=== PATIENT | male | born 1950 | race Caucasian/White ===

== ENCOUNTER 2016-09-12 15:06 | Inpatient (IN) | payer OTHER ==
[~2016-09-12] VITALS: Ht 177.8 cm; Wt 107.9 kg
--- NOTE | 2016-09-17 15:34 | MH ---
cc: Cielo GRANADOS M.D. DATE OF ADMISSION: 09/23/2016 ADMISSION DIAGNOSIS Osteoarthritic degeneration right knee, now being admitted for right total knee arthroplasty. HISTORY OF PRESENT ILLNESS This pleasant 66-year-old male is being admitted today for a right total knee arthroplasty due to severe painful osteoarthritic degeneration right knee. PAST MEDICAL HISTORY Other than arthritis he has a history of kidney stones, hernia repair and back pain. MEDICATIONS He takes no medications. PAST SURGICAL HISTORY 1. Four knee surgeries on the right knee including ACL reconstruction. 2. Left hernia repair. SOCIAL HISTORY He does not smoke or drink. REVIEW OF SYSTEMS Noncontributory. FAMILY HISTORY Noncontributory. ALLERGIES He has no known allergies. PHYSICAL EXAMINATION GENERAL: A 66-year-old male well-developed, well-nourished, oriented x3, complaining of pain in his right knee. VITAL SIGNS: Blood pressure 128/72, pulse 72 and regular, respirations 16, temperature 97.9, pulse oximetry 98% on room air. HEENT: Eyes PERRLA, EOMI. Ears, nose and mouth clear. NECK: Supple. LUNGS: Clear. HEART: Regular rate. ABDOMEN: Soft. Positive bowel sounds. Nontender. EXTREMITIES: The right knee is tender with crepitance on range of motion. He is neurovascularly intact to his toes. IMPRESSION The impression at this time is severe painful osteoarthritic degeneration, right knee. PLAN Admission for right total knee arthroplasty today. The patient understands the procedure well, was given a prescription for postoperative pain and anticoagulation control in the office. He understands he is to use Hibiclens scrub and Bactroban preoperatively and plans on going home with home health care after surgery. MD ALIS Atkinson/JACEK /3:20 PM /3:23 PM
[2016-09-23] MEDS ORDERED: ceFAZolin 2 GM PREMIX 50 ML IV SCH (06:15)
[2016-09-23] MEDS ORDERED: VANCOMYCIN 1000 MG/NS 250 ML (for <70 kg) IV SCH ×2 (06:15)
[2016-09-23] MEDS ORDERED: CHLORHEXIDINE GLUCONATE 4% SOLN 120 ML BTL TOPICAL SCH (06:15)
[2016-09-23] MEDS ORDERED: EXPAREL PERI-ARTICULAR INJECTION (TOTAL VOL. 120 ML) P-ARTICULR SCH ×2 (06:15)
[2016-09-23] MEDS ORDERED: TRANEXAMIC ACID INJ 965 MG in SODIUM CHLORIDE 0.9% INJ 100 ML IV SCH ×4 (06:15)
[2016-09-23 06:22] VITALS: BP 158/82; PULSE 55; RESP 16; TEMP 98; O2SAT 97
[2016-09-23] MEDS ORDERED: INSULIN HUMAN REGULAR 1,000 UNITS/10 ML VIAL SQ PRN (06:30)
[2016-09-23] MEDS ORDERED: METOPROLOL TARTRATE 25 MG TAB PO PRN (06:30)
[2016-09-23] MEDS ORDERED: SODIUM CHLORID 0.9% 500 ML IV PRN (06:30)
[2016-09-23] MEDS ORDERED: LACTATED RINGER'S 1000 ML IV PRN (06:30)
[2016-09-23] MEDS ORDERED: CHLORHEXIDINE GLUCONATE 2 % 1 PACK (2 CLOTHS) TOPICAL PRN (06:30)
[2016-09-23] MEDS ORDERED: POVIDONE IODINE 5% (ANTISEPSIS KIT) 4 APPLICATIONS EACH NARE PRN (06:30)
[2016-09-23] MEDS ORDERED: BUPIVACAINE HCL PF 0.5% 30 ML VIAL NERV BLOCK ONE (07:25)
[2016-09-23] MEDS ORDERED: FAMOTIDINE 20 MG/2 ML VIAL ONE (08:00)
[2016-09-23] MEDS ORDERED: ceFAZolin INJ 1,000 MG VIAL XX ONE (09:12)
[2016-09-23] MEDS ORDERED: ACETAMINOPHEN 1000 MG/100 ML VIAL IV ONE (09:24)
[2016-09-23] MEDS: LACTATED RINGER'S 1000 ML INJ 1,000 ML IV SCH (11:39)
--- NOTE | 2016-09-23 11:42 | HHI.FF ---
Face to Face Verification Diagnosis: (1) Status post total right knee replacement Physical Therapy Gait training Knee: Total knee, Protocol: Right, Gait training, Full weight bearing Canvas Knee Splint: When in bed & 2 pillows btw thighs Nursing RN: 3 days/week x 2 weeks Nursing: Jonathan teaching, Dressing changes Dressing Changes: Daily dressing change, 4x4s, Gauze, Paper tape I have seen patient Masood Smyth on 09/23/16. My clinical findings support the need for the requested home health care services because: Limited ability to care for self High risk of falls I certify that my clinical findings support that this patient is homebound because: Unsteady gait/balance Cielo Joseph MD Sep 23, 2016 11:42
[2016-09-23] MEDS ORDERED: ACETAMINOPHEN 325 MG TAB PO PRN (11:45)
[2016-09-23] MEDS ORDERED: diphenhydrAMINE HCL 50 MG/ML VIAL IV PRN (11:45)
[2016-09-23] MEDS ORDERED: TEMAZEPAM 15 MG CAP PO PRN (11:45)
[2016-09-23] MEDS ORDERED: WALKER WHEELS/F1 MIS (11:45)
[2016-09-23] MEDS ORDERED: NALOXONE HCL 0.4 MG/ML AMP IV PRN ×2 (11:45)
[2016-09-23] MEDS ORDERED: Post-op Orders (for Pharmacy) MISC XX ONE (11:45)
[2016-09-23] MEDS ORDERED: CPMMACHINE (11:45)
[2016-09-23] MEDS ORDERED: SODIUM CHLORIDE 0.9% FLUSH 5 ML FLUSH IVF PRN (11:45)
[2016-09-23] MEDS ORDERED: ADJUSTABLE COMM1 MIS (11:45)
[2016-09-23] MEDS ORDERED: ONDANSETRON HCL 4 MG/2 ML VIAL IVP PRN (11:45)
[2016-09-23] MEDS ORDERED: TRANEXAMIC ACID INJ 0 MG in SODIUM CHLORIDE 0.9% INJ 100 ML IV SCH (11:45)
[2016-09-23] MEDS ORDERED: ACETAMINOPHEN/HYDROcodone 325 MG/7.5 MG TAB PO PRN (11:45)
[2016-09-23] MEDS ORDERED: fentaNYL CITRATE 250 MCG/5 ML AMP ONE (11:59)
[2016-09-23] MEDS ORDERED: MIDAZOLAM HCL 2 MG/2 ML VIAL ONE (11:59)
[2016-09-23] MEDS ORDERED: ONDANSETRON HCL 4 MG/2 ML VIAL IV PUSH ONE (12:00)
[2016-09-23] MEDS ORDERED: PROPOFOL 200 MG/20 ML AMP IV ONE (12:00)
[2016-09-23] MEDS ORDERED: NEOSTIGMINE 3 MG/3 ML SYR IV ONE (12:00)
[2016-09-23] MEDS ORDERED: LACTATED RINGER'S 1000 ML INJ 1,000 ML IV ONE (12:00)
[2016-09-23] MEDS ORDERED: DO NOT ADM ANY ANTICOAGULANT DRUGS PRN (12:30)
[2016-09-23] MEDS: MORPHINE SULFATE 30 MG/30 ML PCA IV SCH (13:08)
[2016-09-23 13:45] VITALS: BP 158/75; PULSE 60; RESP 19; TEMP 97.2; O2SAT 98
--- NOTE | 2016-09-23 14:32 | RADRPT ---
EXAM DATE/TIME: 09/23/2016 12:27 [facility] COMPARISON: No previous studies available for comparison. INDICATIONS : Post op right knee replacement. MEDICAL HISTORY : None. SURGICAL HISTORY : None. ENCOUNTER: Initial ACUITY: 1 day PAIN SCORE: 5/10 LOCATION: Right knee FINDINGS: The patient is status post right total knee replacement. There is no acute fracture or dislocation. CONCLUSION: Status post right total knee replacement with prosthesis in good position. Ward Bustamante MD on September 23, 2016 at 14:29 Board Certified Radiologist. This report was verified electronically.
[2016-09-23] MEDS: PCA - TOTAL MG MORPHINE DELIVERED PER SHIFT SCH ×2 (14:33→22:00)
[2016-09-23 16:00] VITALS: BP 146/80; PULSE 70; RESP 19; TEMP 98; O2SAT 98
[2016-09-23 20:50] VITALS: BP 138/79; PULSE 59; RESP 18; TEMP 96.6; O2SAT 97
[2016-09-23] MEDS: SODIUM CHLORIDE 0.9% FLUSH 5 ML FLUSH IVF SCH (21:00)
--- NOTE | 2016-09-23 22:35 | MP ---
cc: Cielo GRANADOS DATE OF SURGERY 09/23/2016 PREOPERATIVE DIAGNOSIS Osteoarthritic degeneration, right knee. POSTOPERATIVE DIAGNOSIS Osteoarthritic degeneration, right knee. PROCEDURE Right total knee arthroplasty using consensus components size six femur, four tibia, 12-mm insert with a size 2 x 7.5 patella with two batches of DePuy cement SURGEON Dr. Rohith Granados HAND BOX FOLDER GAMALIEL Higuera ANESTHESIA General intubation PROCEDURE IN DETAIL After successful induction of anesthesia, the patient is placed on the operating room table in the supine position. The knee is prepped and draped in the usual manner. A tourniquet is inflated at the upper thigh and set to 300 mmHg pressure after exsanguination of the lower extremity. A longitudinal incision is made extending from 3 inches proximal to the superior pole of the patella, across the patella in longitudinal fashion, and down past the insertion of the tibial tubercle into the proximal tibia. The incision is carried down through subcutaneous tissue along the medial aspect of the patella and retinaculum, down through the capsule to expose the knee joint. The patella and patellar tendon are freed up enough to allow the patella to be inverted and retracted off the lateral side of the knee joint. The knee joint is left exposed. Small osteophytes are removed. All soft tissue is removed to allow proper position of the femoral and tibial cutting jig guide. The first femoral jig is then inserted along the distal end of the femur after first measuring to decide whether this is a small, medium, or large component. The notch is then drilled and the tibial cutting guide inserted into the femoral cutting guide, along with the ankle brace to allow for proper measurement of the tibial cutting surface that needed to be resected. Pins are inserted into the tibial cutting jig and femoral cutting jig to hold them in place. An oscillating saw is then used to resect the surface of the tibia. The surface of the tibia is then completely removed using sharp and blunt dissection. The anterior and posterior cuts of the femur are then made as well using an oscillating saw through the cutting guide. All guides are then removed and the varus/valgus angulation cutting guide applied to the femur for proper measurement of the proper amount of valgus. The anterior cutting guide for the femur is then inserted at the anterior femoral cuts made. Next, the first block trial is inserted into the femur to allow for proper condyle drill holes to be made which are then made followed by removal of the bone between the condyles using an oscillating saw as well as the bone removed at the most posterior surface of the condyle. After this, this guide is removed and the chamfer cuts made using the chamfer cutting guide from both anterior and posterior. Next, the femoral trial is then inserted, the tibial surface reflected anterior to expose the tibial surface and a tibial stem guide is inserted after first measuring for a standard, standard plus, large, or large plus surface to be used. After the stem is impacted the trial tibial surface is applied followed by the trial meniscal components. After full range of motion is found with the appropriate length meniscal components varying the patella is prepared by resecting the posterior aspect of the patella using an oscillating saw, inserting a trial. The trial is then removed and the cruciate cutting guide applied using the bur to cut the cruciate cuts. After cruciate cuts are made all trials are removed. The wound is irrigated copiously with antibiotic solution and Water Pik and the actual components inserted into place using the aforementioned components. After the cement has hardened and the components are found to have full range of motion with no instability, the tourniquet is deflated, total tourniquet time being 95 minutes at 300 mmHg pressure. It should be noted that upon preparation of the tibia, the two screws from previous ACL reconstruction surgery needed to be removed which necessitated an extra 45 minutes of surgical time. The wound was irrigated copiously with antibiotic solution and 120 mL of Exparel used around the knee as extra pain control. The deep fascia was approximated with running #2 quill, subcutaneous tissue approximated using interrupted running 2-0 and 4-0 Monocryl sutures. Steri-Strips, sterile dressing and knee immobilizer. No drain utilized. Estimated blood loss 100 mL. Sponge and count correct. The patient tolerated the procedure well, left the operating room in satisfactory condition. It should be noted Fernando ALSTON was present during the entire procedure to include patient positioning as well as the procedure. The medical necessity of a nurse practitioner data analysis assistant was indicated in this case due to the surgical complexity of the case itself. During the surgical case, the assembler surgical garment was working the back table while my surgical appliances salesperson GAMALIEL was directly assisting me. J. MD ALIS Donovan/ /12:08 PM /10:30 PM
[2016-09-24] VITALS (7 sets, daily range): BP systolic 138–158; BP diastolic 68–74; PULSE 55–104; RESP 17–18; TEMP 96.6–99.9; O2SAT 93–96
[2016-09-24] MEDS: LACTATED RINGER'S 1000 ML INJ 1,000 ML IV SCH ×2 (02:13→12:39)
[2016-09-24] MEDS: MORPHINE SULFATE 30 MG/30 ML PCA IV SCH (02:18)
[2016-09-24] MEDS: PCA - TOTAL MG MORPHINE DELIVERED PER SHIFT SCH ×3 (05:54→22:00)
[2016-09-24 07:22] LABS: HEMATOCRIT 40.7 % (39.0-51.0); REVIEW FLAG FINAL
--- NOTE | 2016-09-24 08:05 | PD.ORT.PN ---
Subjective Post Op Day #: POD 1 Pain Scale: 0/10 Subjective Remarks Ax3, NAD Feeling well Discusses interest in actively returning to work and physical therapy yo begin. Range of Motion currently in bed CMP not in use at this time Objective Vitals Vital Signs Date Time Temp Pulse Resp B/P Pulse Ox O2 Delivery O2 Flow Rate FiO2 09/24/16 07:45 96.7 104 18 138/69 95 09/24/16 05:54 18 09/24/16 04:50 96.6 69 17 154/74 95 09/24/16 02:23 18 09/24/16 02:18 18 09/24/16 00:30 97.0 55 17 142/68 96 09/23/16 22:00 18 09/23/16 20:50 96.6 59 18 138/79 97 09/23/16 16:00 98.0 70 19 146/80 98 09/23/16 14:33 18 09/23/16 13:45 97.2 60 19 158/75 98 09/23/16 13:08 13 09/23/16 12:45 64 16 137/68 96 Nasal Cannula 2 09/23/16 12:30 66 16 160/74 95 Nasal Cannula 2 09/23/16 12:15 76 16 163/86 97 Nasal Cannula 2 09/23/16 12:00 63 16 165/80 95 Nasal Cannula 2 09/23/16 11:46 97.6 73 16 165/81 97 Nasal Cannula 2 I/O 09/23/16 09/23/16 09/23/16 09/24/16 09/24/16 09/24/16 07:00 15:00 23:00 07:00 15:00 23:00 Intake Total 1200 ml 480 ml 480 ml Output Total 100 ml 400 ml 450 ml Balance 1100 ml 80 ml 30 ml Intake Oral 0 ml 480 ml 480 ml IV Total 100 ml Other 1100 ml Output Urine Total 0 ml 400 ml 450 ml Estimated Blood Loss 100 ml Other 0 ml # Bowel Movements 0 0 Result Diagram: 09/24/16 0612 Imaging Last 24 hours Impressions Knee X-Ray 09/23/16 1139 Signed Impressions: Service Date/Time: Friday, September 23, 2016 12:27 - CONCLUSION: Status post right total knee replacement with prosthesis in good position. Ward Bustamante MD Objective Remarks In bed, rt knee dsg clean dry and intact. pedal / post tib pulses 2+ , CMS wnl IV and BOOKING OFFICER maintained Assessment & Plan Assessment and Plan Continue current txt and therapy in progress continue same rx in hospital D/c planing to continue Sharon Lozano Sep 24, 2016 08:05
[2016-09-24] MEDS ORDERED: MAGNESIUM HYDROXIDE SUSP 30 ML CUP PO ONE (08:30)
[2016-09-24] MEDS: SODIUM CHLORIDE 0.9% FLUSH 5 ML FLUSH IVF SCH ×3 (09:12→21:00)
[2016-09-24] MEDS: ENOXAPARIN SODIUM 30 MG/0.3 ML SYRINGE SQ SCH ×2 (11:29→23:09)
[2016-09-24] MEDS: ACETAMINOPHEN/HYDROcodone 325 MG/7.5 MG TAB PO PRN ×2 (16:00→22:50)
[2016-09-24] MEDS: MULTIVITAMINS/MINERALS THERAPEUTIC TAB PO SCH (23:09)
[2016-09-24] MEDS: DOCUSATE SODIUM 100 MG CAP PO SCH (23:09)
[2016-09-24] MEDS: MAGNESIUM HYDROXIDE SUSP 30 ML CUP PO SCH (23:10)
[2016-09-25] VITALS: BP 143/77; PULSE 81; RESP 20; TEMP 96.8; O2SAT 93
[2016-09-25] MEDS: LACTATED RINGER'S 1000 ML INJ 1,000 ML IV SCH ×2 (01:09→13:39)
[2016-09-25] MEDS: MORPHINE SULFATE 30 MG/30 ML PCA IV SCH (02:18)
[2016-09-25 04:00] VITALS: BP 158/68; PULSE 79; RESP 16; TEMP 98.7; O2SAT 94
[2016-09-25] MEDS: PCA - TOTAL MG MORPHINE DELIVERED PER SHIFT SCH (06:00)
[2016-09-25 07:33] VITALS: BP 157/86; PULSE 76; RESP 18; TEMP 98; O2SAT 94
[2016-09-25 08:02] LABS: HEMATOCRIT 40.2 % (39.0-51.0); REVIEW FLAG FINAL
[2016-09-25] MEDS ORDERED: oxyCODONE/ACETAMINOPHEN 10 MG/325 MG TAB PO PRN ×2 (08:30)
--- NOTE | 2016-09-25 09:21 | PD.ORT.PN ---
Subjective Subjective Remarks pt somewhat painful today. Objective Vitals Vital Signs Date Time Temp Pulse Resp B/P Pulse Ox O2 Delivery O2 Flow Rate FiO2 09/25/16 07:33 98.0 76 18 157/86 94 09/25/16 06:00 17 09/25/16 04:00 98.7 79 16 158/68 94 09/25/16 02:18 18 09/25/16 00:00 96.8 81 20 143/77 93 09/24/16 20:00 99.9 88 18 158/71 94 09/24/16 16:00 97.7 100 18 158/72 95 09/24/16 13:16 18 09/24/16 12:34 93 09/24/16 12:00 96.6 64 18 139/70 95 I/O 09/24/16 09/24/16 09/24/16 09/25/16 09/25/16 09/25/16 07:00 15:00 23:00 07:00 15:00 23:00 Intake Total 1750 ml 720 ml 780 ml 500 ml Output Total 450 ml 800 ml 300 ml Balance 1300 ml -80 ml 780 ml 200 ml Intake Oral 480 ml 720 ml 780 ml 500 ml IV Total 1270 ml Output Urine Total 450 ml 800 ml 300 ml # Voids 1 1 # Bowel Movements 0 0 0 0 Result Diagram: 09/25/16 0652 Imaging Last 24 hours Impressions Knee X-Ray 09/23/16 1139 Signed Impressions: Service Date/Time: Friday, September 23, 2016 12:27 - CONCLUSION: Status post right total knee replacement with prosthesis in good position. Ward Bustamante MD Objective Remarks In bed, rt knee dsg clean dry and intact. pedal / post tib pulses 2+ , CMS wnl IV and INFORMATICA MDM ARCHITECT maintained Assessment & Plan Ortho Post Op Day #: 2 Problem List: Assessment and Plan DC INFORMATICA MDM ARCHITECT today. Start PO pain meds. Continue current txt and therapy in progress continue same rx in hospital D/c planing to continue. Ok for dc to home with HHC and PT tonight if comfortable and arrangements made. Cielo Joseph MD Sep 25, 2016 09:21
--- NOTE | 2016-09-25 09:23 | HHI.DS ---
Discharge Summary Admission Date Sep 23, 2016 at 05:52 Discharge Date: Sep 25, 2016 Admitting Diagnosis Osteoarthritic degeneration right knee Diagnosis: (1) Status post total right knee replacement Diagnosis: Principal Brief History This is a 66 year old male patient CBC/BMP: 09/25/16 0652 PE at Discharge In bed, rt knee dsg clean dry and intact. pedal / post tib pulses 2+ , CMS wnl IV and RAILROAD CAR TRUCK BUILDER maintained Hospital Course Patient underwent a right total knee arthroplasty on day of admission. He received a course of prophylactic IV antibiotics and within 23 hours started on anticoagulation therapy. He continued to improve remained afebrile vital signs stable neurovascularly intact. He began out of bed tolerating food and fluid well and switched to by mouth pain meds on early by mouth on postoperative day # 2. He was discharged in good condition on by mouth pain meds with instructions for home healthcare physical therapy continuation of anticoagulation and appointment in the office for follow-up. Pt Condition on Discharge: Good Discharge Disposition: Disch w/ Home Health Serv Discharge Instructions Diet Instructions: As Tolerated, No Restrictions Activities You Can Perform: Full Weight Bearing, Shower Only-No Bath Activities to Avoid: Bathing, Driving Cielo Joseph MD Sep 25, 2016 09:23
[2016-09-25] MEDS: MAGNESIUM HYDROXIDE SUSP 30 ML CUP PO SCH (09:58)
[2016-09-25] MEDS: DOCUSATE SODIUM 100 MG CAP PO SCH (09:59)
[2016-09-25] MEDS: SODIUM CHLORIDE 0.9% FLUSH 5 ML FLUSH IVF SCH (09:59)
[2016-09-25] MEDS: MULTIVITAMINS/MINERALS THERAPEUTIC TAB PO SCH (09:59)
[2016-09-25] MEDS ORDERED: BACITRACIN OINT 0.9 GM PKT TOP PRN (10:15)
[2016-09-25 12:00] VITALS: BP_SYST 118; BP_SYST 151; BP_DIAS 59; BP_DIAS 75; PULSE 100; PULSE 90; RESP 18; TEMP 100.1; TEMP 98.1; O2SAT 92; O2SAT 96
[2016-09-25] MEDS: ENOXAPARIN SODIUM 30 MG/0.3 ML SYRINGE SQ SCH (12:22)
[2016-09-25 16:00] VITALS: BP 156/84; PULSE 92; RESP 18; TEMP 97.6; O2SAT 92
== END 2016-09-25 18:44 | disposition home health service (06) | DRG 470 ==
LOC: HSDI 09-23 05:52 → N06A 09-23 13:29
PROVIDERS: ADMIT Surgery; ATTEND Surgery
PROC: 0SRC0J9 Replacement of Right Knee Joint with Synthetic Substitute, Cemented, Open Approach (ICD-10-PCS; principal; 2016-09-23 08:12)
DX: M17.11 Unilateral primary osteoarthritis, right knee (principal); M54.9 Dorsalgia, unspecified
CPT/HCPCS: 73560; 85014; 85018; 86850; 86900; 86901; 94150; C1776; C9290; J0131; J0690; J1650; J2250; J2270; J2405; J2710; J3010; J3370; J7050; J7120; L1830

== ENCOUNTER → 2016-09-15 | Outpatient (CLI) | payer OTHER ==
[~2016-09-15] MED LIST: ADJUSTABLE COMM1 MIS; CPMMACHINE; WALKER WHEELS/F1 MIS
[2016-09-15 09:51] LABS: AUTOMATED NEUTROPHIL # 2.3 TH/MM3 (1.8-7.7); BASOPHIL % 0.5 % (0.0-2.0); EOSINOPHIL # 0.1 TH/MM3 (0-0.4); EOSINOPHIL % 3.2 % (0.0-4.0); HEMATOCRIT 43.5 % (39.0-51.0); HEMO FLAGS DIFF FINAL; LYMPH % 36.7 % (9.0-44.0); LYMPHOCYTE # 1.7 TH/MM3 (1.0-4.8); MEAN CELL VOLUME 92.8 FL (80.0-100.0); MEAN CORPUSCULAR HGB CONC 34.4 % (32.0-36.0); MONO % 9.5 % (0.0-8.0); NEUT % 50.1 % (16.0-70.0); PLATELET COUNT 266 TH/MM3 (150-450); RED BLOOD COUNT 4.69 MIL/MM3 (4.50-5.90); RED CELL DISTRIBUTION WIDTH 12.4 % (11.6-17.2); WHITE BLOOD COUNT 4.7 TH/MM3 (4.0-11.0)
[2016-09-15 10:06] LABS: APTT (PATIENT) 26.3 SEC (24.3-30.1); INTERNATIONAL NORMALIZED RATIO 0.9 RATIO; PROTHROMBIN TIME - PATIENT 10.3 SEC (9.8-11.6)
[2016-09-15 10:30] LABS: ANION GAP 5 MEQ/L (5-15); AST (GOT) 14 U/L (15-37); BICARBONATE 32.2 MEQ/L (21.0-32.0); BLOOD UREA NITROGEN 13 MG/DL (7-18); CHLORIDE 103 MEQ/L (98-107); GLOMERULAR FILTRATION RATE 71 ML/MIN (>89); GLUCOSE,FASTING 95 MG/DL (74-99); POTASSIUM 4.2 MEQ/L (3.5-5.1); SODIUM (NA) 140 MEQ/L (136-145)
[2016-09-15 10:31] LABS: ALT (GPT) 20 U/L (12-78)
[2016-09-15 10:34] LABS: ALKALINE PHOSPHATASE 66 U/L (45-117); TOTAL BILIRUBIN ADULT 0.7 MG/DL (0.2-1.0)
[2016-09-15 11:24] LABS: BLOOD, URINE NEG (NEG); COMMENT (UR) CULT NOT INDICATED; CULTURE IF INDICATED CULT NOT INDICATED; GLUCOSE,URINE NEG (NEG); KETONE, URINE NEG (NEG); MUCUS URINE FEW /lpf (OCC); NITRITE,URINE NEG (NEG); PH, URINE 5.5 (5.0-8.5); URINE COLOR YELLOW (YELLW/STRAW)
--- NOTE | 2016-09-16 22:32 | EKG ---
Date Performed: 09/15/2016 Time Performed: 09:35:55 PTAGE: 66 years EKG: Sinus rhythm Since previous tracing, no significant change noted NORMAL ECG PREVIOUS TRACING : 02/20/2015 08.39.04 DOCTOR: Yisel Leon Interpretating Date/Time 09/16/2016 22:30:46
== END ==
LOC: CPRE 09:16
PROVIDERS: ATTEND Surgery
DX: Z01.810 Encounter for preprocedural cardiovascular examination (principal); Z01.812 Encounter for preprocedural laboratory examination
CPT/HCPCS: 36415; 80053; 81001; 85025; 85610; 85730; 93005